=== PATIENT | male | born 1970 | race Caucasian/White ===

== ENCOUNTER 2018-08-05 16:17 | Emergency (ER) | payer SELFPAY ==
[2018-08-05] MEDS ORDERED: ONDANSETRON 4 MG/2 ML VIAL ONE ×2 (16:51→18:37)
[2018-08-05] MEDS ORDERED: KETOROLAC 30 MG/ML INJ ONE (16:51)
--- NOTE | 2018-08-05 17:28 | RAD REPORT ---
EXAM DESCRIPTION: CT - Stone Protocol - 08/05/2018 5:08 pm CLINICAL HISTORY: Flank pain. left flank pain COMPARISON: No comparisons TECHNIQUE: Axial images were obtained without oral or IV contrast. Lack of contrast limits solid org an and vascular assessment. The [id number] spans the entirety of the system partially obscuring uppermost abdomen and lung bases. Coronal reformatted images were obtained and reviewed. All CT scans are performed using dose optimization technique as appropriate and may include automated exposure control or mA/KV adjustment according to patient size. FINDINGS: The lower lung avalos are clear. Imaged portions of the liver and spleen show no suspicious findings on non-contrast imaging. The panc reas and adrenal glands are normal. No pathologic lymphadenopathy in the abdomen or pelvis. 5 mm stone is present at the left UVJ resulting in mild left hydronephrosis. No bowel obstruction, free air, free fluid or abscess. Normal appendix noted. No significant bony abnormality. Small fat containing umbilical hernia. Small bilateral inguinal deborah ias. IMPRESSION: 5 mm stone at the left UVJ resulting in mild left hydronephrosis.
[2018-08-05] MEDS ORDERED: MORPHINE 4 MG/ML SYR ONE ×2 (17:32→18:37)
[2018-08-05 17:39] LABS: Absolute Lymphocytes (CBC) 2.2 K/uL (0.7-4.9); Absolute Monocytes 0.8 K/uL (0.1-1.3); Absolute Neutrophil 4.9 K/uL (1.8-8.0); Basophils % 0.9 % (0-1.3); Eosinophils % 3.5 % (0-4.4); Hematocrit 43.7 % (39.6-49.0); Lymphocytes % 26.5 % (15.3-44.8); MPV 8.9 fL (7.6-11.3); Monocytes % 9.3 % (3.3-12.3); RBC Red Blood Cell Count 4.54 M/uL (4.33-5.43)
[2018-08-05 17:49] LABS: Urine Bacteria <20 /HPF (NONE SEEN)
[2018-08-05 17:50] LABS: Urine Culture Reflex Order NOT NEEDED; Urine Mucus LIGHT /HPF (NONE SEEN)
[2018-08-05] MEDS ORDERED: MAGNESIUM SULFATE 1 gm IVPB 1 GM/100 ML BAG IV ONE (18:02)
[2018-08-05] MEDS ORDERED: TAMSULOSIN 0.4 MG SR CAP ONE (18:02)
[2018-08-05 18:09] LABS: ALT/SGPT 42 U/L (12-78); AST/SGOT 25 U/L (15-37); Albumin 4.2 g/dL (3.4-5.0); Alkaline Phosphatase 57 U/L (45-117); BUN Blood Urea Nitrogen 19 mg/dL (7-18); Bicarbonate 23 mmol/L (21-32); Bilirubin Direct < 0.1 mg/dL (0-0.2); Bilirubin Total 0.3 mg/dL (0.2-1.0); Glucose Level 89 mg/dL (74-106); Lipase 105 U/L (73-393); Potassium 4.5 mmol/L (3.5-5.1); Protein, Total 7.5 g/dL (6.4-8.2); Sodium Level 139 mmol/L (136-145)
[2018-08-05 18:16] LABS: Urine Blood 3+ (NEG); Urine Glucose NEGATIVE (NEG); Urine Protein TRACE (NEG); Urine Specific Gravity >1.030 (1.005-1.030); Urine pH 5.5 (5.0-7.0)
--- NOTE | 2018-08-05 18:53 | ER ---
Nurse's Notes [facility] Name: Vlad Dixon Age: 48 yrs Sex: Male : 1970 Arrival Date: 08/05/2018 Time: 16:18 Bed 15 Private MD: Ho Jimenez T Diagnosis: Calculus of ureter-Left Presentation: 08/05 16:19 Presenting complaint: Patient states: 3 days ago, i started having L upper abd pain, L hj lower abd and flank area and its getting worse, it got worse after a bowel movement; denies diarrhea, denies N/V; denies fever and chills; took Tylenol today;. Transition of care: patient was not received from another setting of care. Onset of symptoms was August 05, 2018. Risk Assessment: Do you want to hurt yourself or someone else? Patient reports no desire to harm self or others. Initial Sepsis Screen: Does the patient meet any 2 criteria? No. Patient's initial sepsis screen is negative. Does the patient have a suspected source of infection? No. Patient's initial sepsis screen is negative. Care prior to arrival: None. 16:19 Method Of Arrival: Ambulatory 16:19 Acuity: NARGIS 3 hj Triage Assessment: 16:24 General: Appears in no apparent distress. uncomfortable, Behavior is cooperative, hj appropriate for age, anxious, crying. Pain: Complains of pain in abdomen Pain currently is 10 out of 10 on a pain scale. Quality of pain is described as stabbing. GI: Reports lower abdominal pain, upper abdominal pain. Historical: - Allergies: 16:24 No Known Allergies; hj - Home Meds: 16:24 Wellbutrin SR 300 mg Oral TbER 1 tab once daily [Active]; Protonix 40 mg Oral TbEC 1 hj tab once daily [Active]; Xarelto oral 1 tab once daily [Active]; atorvastatin 20 mg oral tab 1 tab once daily [Active]; - PMHx: 16:24 Depression; GERD; PE; DVT; Hyperlipidemia; hj - PSHx: 16:24 elbow; hj - Immunization history:: Adult Immunizations up to date. - Social history:: Smoking status: Patient/guardian denies using tobacco, Patient/guardian denies using alcohol. - Ebola Screening: : Patient negative for fever greater than or equal to 101.5 degrees Fahrenheit, and additional compatible Ebola Virus Disease symptoms Patient denies exposure to infectious person Patient denies travel to an Ebola-affected area in the 21 days before illness onset. Screenin:24 Abuse screen: Denies threats or abuse. Denies injuries from another. Nutritional hj screening: No deficits noted. Tuberculosis screening: No symptoms or risk factors identified. Fall Risk None identified. Assessment: 16:25 GI: Bowel sounds present X 4 quads. hj 16:25 General: Appears distressed, uncomfortable, well groomed, well developed, emaciated, tl3 Behavior is agitated, anxious. Pain: Complains of pain in abdomen Pain currently is 10 out of 10 on a pain scale. Neuro: Level of Consciousness is awake, alert, obeys commands, Oriented to person, place, time, situation, Appropriate for age. Cardiovascular: Patient's skin is warm and dry. Respiratory: Airway is patent Respiratory effort is even, labored, Respiratory pattern is tachypnea. : Urine is clear. EENT: No signs and/or symptoms were reported regarding the EENT system. Derm: No signs and/or symptoms reported regarding the dermatologic system. Musculoskeletal: No signs and/or symptoms reported regarding the musculoskeletal system. 17:40 Reassessment: Patient and/or family updated on plan of care and expected duration. Pain tl3 level reassessed. Patient is alert, oriented x 3, equal unlabored respirations, skin warm/dry/pink. 18:43 Reassessment: Patient appears in no apparent distress at this time. No changes from tl3 previously documented assessment. Patient and/or family updated on plan of care and expected duration. Pain level reassessed. Patient is alert, oriented x 3, equal unlabored respirations, skin warm/dry/pink. Jb at bedside discussing POC. 19:05 Reassessment: Patient appears in no apparent distress at this time. Patient and/or cc3 family updated on plan of care and expected duration. Pain level reassessed. Patient is alert, oriented x 3, equal unlabored respirations, skin warm/dry/pink. Received this male patient from morning shift VIKTORIYA Fletcher as a case of abdominal pain. With IV cannula gauge 20 at the right ACV saline locked. 19:30 Reassessment: HALINA Soares discharged the patient home with prescription given. IV cannula cc3 removed and patient left ER vitally stable and ambulatory with his . Vital Signs: 16:25 BP 162 / 100; Pulse 86; Resp 20; Temp 97.5(TE); Pulse Ox 98% on R/A; Weight 136.08 kg; tl3 Height 6 ft. 3 in. (190.50 cm); Pain 10/10; 17:15 BP 130 / 102; Pulse 80; Resp 18; Pulse Ox 100% on R/A; tl3 18:15 BP 138 / 96; Pulse 78; Resp 18; Pulse Ox 98% ; tl3 19:22 BP 143 / 97; Pulse 76; Resp 20 S; Pulse Ox 99% on R/A; cc3 16:25 Body Mass Index 37.50 (136.08 kg, 190.50 cm) tl3 ED Course: 16:18 Patient arrived in ED. sb2 16:18 Ho Jimenez MD is Private Physician. sb2 16:21 Triage completed. hj 16:25 Arm band placed on right wrist. hj 16:25 Patient has correct armband on for positive identification. Placed in gown. Bed in low hj position. Call light in reach. Side rails up X 1. Adult w/ patient. 16:31 Jb Soares PA is PHCP. cp 16:31 Jb Navarro MD is Attending Physician. cp 16:38 Initial lab(s) drawn, by me. Inserted saline lock: 20 gauge in right antecubital area, hj using aseptic technique. Blood collected. 16:40 Justine Cadena, RN is Primary Nurse. tl3 17:08 CT Stone Protocol In Process Unspecified. EDMS 17:41 Urine Dipstick--Ancillary (enter results) Sent. tl3 18:53 Pollo Otero MD is Referral Physician. cp 19:30 No provider procedures requiring assistance completed. IV discontinued, intact, cc3 bleeding controlled, No redness/swelling at site. Pressure dressing applied. Administered Medications: 16:46 Drug: Zofran 4 mg Route: IVP; Site: right antecubital; tl3 18:38 Follow up: Response: No adverse reaction tl3 16:46 Drug: TORadol 30 mg Route: IVP; Infused Over: 1 mins; Site: right antecubital; tl3 18:38 Follow up: Response: Pain is decreased tl3 17:41 Drug: morphine 4 mg Route: IVP; Infused Over: 2 mins; Site: right antecubital; tl3 18:38 Follow up: Response: No adverse reaction tl3 18:00 Drug: Flomax 0.4 mg Route: PO; tl3 18:33 Follow up: Response: No adverse reaction tl3 18:00 Drug: Magnesium Sulfate 1 grams Route: IVPB; Infused Over: 1 hrs; Site: right tl3 antecubital; Delivery: Primary tubing; 18:36 Drug: morphine 4 mg Route: IVP; Infused Over: 2 mins; Site: right antecubital; tl3 18:42 Follow up: Response: Pain is decreased tl3 18:37 Drug: Zofran 4 mg Route: IVP; Infused Over: 2 mins; Site: right antecubital; tl3 18:42 Follow up: Response: No adverse reaction tl3 19:20 Drug: Tylenol #3 (300 mg-30 mg) 2 tabs Route: PO; cc3 19:30 Follow up: Response: No adverse reaction cc3 Outcome: 18:53 Discharge ordered by MD. cp 19:30 Discharged to home ambulatory, with family. cc3 19:30 Condition: stable 19:30 Discharge instructions given to patient, family, Instructed on discharge instructions, follow up and referral plans. medication usage, Demonstrated understanding of instructions, follow-up care, medications, Prescriptions given X 3. 19:41 Patient left the ED. cc3 Signatures: Dispatcher [employer] EDMS Max Scott RN RN hj Jb Soares PA PA cp Billeau, Sheri sb2 Justine Cadena RN RN tl3 Mildred Bradley cc3 Corrections: (The following items were deleted from the chart) 16:22 16:19 Presenting complaint: Patient states: 3 days ago, i started having L upper abd hj pain, L lower abd and flank area and its getting worse, reports diarrhea, denies N/V; denies fever and chills; took Tylenol today; hj 16:30 16:25 Pulse 86bpm; Resp 18bpm; Pulse Ox 98% RA; Temp 97.5F Temporal; 136.08 kg; Height hj 6 ft. 3 in.; BMI: 37.5; Pain 10/10; hj 18:31 16:25 BP 162 / 100; Pulse 86bpm; Resp 18bpm; Pulse Ox 98% RA; Temp 97.5F Temporal; tl3 136.08 kg; Height 6 ft. 3 in.; BMI: 37.5; Pain 10/10; hj 18:32 16:25 BP 130 / 102; Pulse 80bpm; Resp 18bpm; Pulse Ox 100% RA; tl3 tl3
--- NOTE | 2018-08-05 18:53 | EDPHYS ---
Physician Documentation [facility] Name: Vlad Dixon Age: 48 yrs Sex: Male : 1970 Arrival Date: 08/05/2018 Time: 16:18 Bed 15 Private MD: Ho Jiemnez T ED Physician Jb Navarro HPI: 08/05 16:45 This 48 yrs old Male presents to ER via Ambulatory with complaints of cp Abdominal Pain, Diarrhea. 16:45 The patient presents with abdominal pain left flank. The symptoms radiate to left back, cp left groin. Associated signs and symptoms: Pertinent positives: dysuria, nausea, Pertinent negatives: blood in stools, chest pain, constipation, diarrhea, fever, headache, palpitations, vomiting. The symptoms are described as constant. 16:45 Onset: The symptoms/episode began/occurred 3 day(s) ago, and became worse today, after cp bowel movement. Historical: - Allergies: 16:24 No Known Allergies; hj - Home Meds: 16:24 Wellbutrin SR 300 mg Oral TbER 1 tab once daily [Active]; Protonix 40 mg Oral TbEC 1 hj tab once daily [Active]; Xarelto oral 1 tab once daily [Active]; atorvastatin 20 mg oral tab 1 tab once daily [Active]; - PMHx: 16:24 Depression; GERD; PE; DVT; Hyperlipidemia; hj - PSHx: 16:24 elbow; hj - Immunization history:: Adult Immunizations up to date. - Social history:: Smoking status: Patient/guardian denies using tobacco, Patient/guardian denies using alcohol. - Ebola Screening: : Patient negative for fever greater than or equal to 101.5 degrees Fahrenheit, and additional compatible Ebola Virus Disease symptoms Patient denies exposure to infectious person Patient denies travel to an Ebola-affected area in the 21 days before illness onset. ROS: 16:50 Constitutional: Negative for body aches, chills, fever, poor PO intake. cp 16:50 Eyes: Negative for injury, pain, redness, and discharge. cp 16:50 ENT: Negative for drainage from ear(s), ear pain, sore throat, difficulty swallowing, difficulty handling secretions. 16:50 Cardiovascular: Negative for chest pain, edema, palpitations. 16:50 Respiratory: Negative for cough, shortness of breath, wheezing. 16:50 Abdomen/GI: Positive for abdominal pain, nausea, Negative for vomiting, diarrhea, constipation, anorexia, black/tarry stool, rectal bleeding. 16:50 Back: Positive for flank pain, on the left, Negative for injury or acute deformity, decreased range of motion. 16:50 : Positive for burning with urination, left groin pain. 16:50 Skin: Negative for cellulitis, rash. 16:50 Neuro: Negative for altered mental status, headache, weakness. 16:50 All other systems are negative. Exam: 16:55 Constitutional: The patient appears in no acute distress, alert, awake, cp non-diaphoretic, non-toxic, well developed, well nourished, uncomfortable. 16:55 Head/Face: Normocephalic, atraumatic. cp 16:55 Eyes: Periorbital structures: appear normal, Conjunctiva: normal, no exudate, no injection, Sclera: no appreciated abnormality, Lids and lashes: appear normal, bilaterally. 16:55 ENT: External ear(s): are unremarkable, Nose: is normal, Mouth: Lips: moist, Oral mucosa: pink and intact, moist, Posterior pharynx: is normal, airway is patent, no erythema, no exudate, Voice: is normal. 16:55 Neck: ROM/movement: is normal, is supple, without pain, no range of motions limitations, no nuchal rigidity. 16:55 Chest/axilla: Inspection: normal, Palpation: is normal, no crepitus, no tenderness. 16:55 Cardiovascular: Rate: normal, Rhythm: regular, Edema: is not appreciated, JVD: is not appreciated. 16:55 Respiratory: the patient does not display signs of respiratory distress, Respirations: normal, no use of accessory muscles, no retractions, no splinting, no tachypnea, labored breathing, is not present, Breath sounds: are clear throughout, no decreased breath sounds, no stridor, no wheezing. 16:55 Abdomen/GI: Inspection: obese Bowel sounds: active, all quadrants, Palpation: soft, in all quadrants, moderate abdominal tenderness, in the anterior aspect of left lateral abdomen, left upper quadrant and left lower quadrant, rebound tenderness, is not appreciated, involuntary guarding, is not appreciated. 16:55 Skin: cellulitis, is not appreciated, no rash present. 16:55 Neuro: Orientation: to person, place \T\ time. Mentation: is normal, Cerebellar function: is grossly normal, Motor: moves all fours, strength is normal, Sensation: is normal. Vital Signs: 16:25 BP 162 / 100; Pulse 86; Resp 20; Temp 97.5(TE); Pulse Ox 98% on R/A; Weight 136.08 kg; tl3 Height 6 ft. 3 in. (190.50 cm); Pain 10/10; 17:15 BP 130 / 102; Pulse 80; Resp 18; Pulse Ox 100% on R/A; tl3 18:15 BP 138 / 96; Pulse 78; Resp 18; Pulse Ox 98% ; tl3 19:22 BP 143 / 97; Pulse 76; Resp 20 S; Pulse Ox 99% on R/A; cc3 16:25 Body Mass Index 37.50 (136.08 kg, 190.50 cm) tl3 MDM: 16:31 Patient medically screened. cp 17:00 Differential diagnosis: appendicitis, bowel obstruction, cholecystitis, Cholelithiasis, cp diverticulitis, pancreatitis, Pyelonephritis, Testicular Torsion, Ureterolithiasis, urinary tract infection. 18:50 Data reviewed: vital signs, nurses notes, lab test result(s), radiologic studies, CT cp scan. 18:50 Counseling: I had a detailed discussion with the patient and/or guardian regarding: the cp historical points, exam findings, and any diagnostic results supporting the discharge/admit diagnosis, lab results, radiology results, the need for outpatient follow up, a urologist, to return to the emergency department if symptoms worsen or persist or if there are any questions or concerns that arise at home. Response to treatment: the patient's symptoms have markedly improved after treatment, VSS. Pain markedly improved, and as a result, I will discharge patient. 08/05 16:38 Order name: Basic Metabolic Panel; Complete Time: 18:28 cp 08/05 18:28 Interpretation: Normal except: BUN 19; GFR 62. cp 08/05 16:38 Order name: CBC with Diff; Complete Time: 17:55 cp 08/05 17:56 Interpretation: Reviewed. cp 08/05 16:38 Order name: Creatinine for Radiology; Complete Time: 18:28 cp 08/05 16:38 Order name: Hepatic Function; Complete Time: 18:28 cp 08/05 16:38 Order name: Lipase; Complete Time: 18:28 cp 08/05 16:38 Order name: Urine Microscopic Only; Complete Time: 17:55 cp 08/05 16:38 Order name: CT Stone Protocol; Complete Time: 17:41 cp 08/05 17:36 Order name: Urine Dipstick--Ancillary (enter results) ag 08/05 17:37 Order name: Urine Dipstick-Ancillary; Complete Time: 18:28 EDMS 08/05 16:38 Order name: IV Saline Lock; Complete Time: 16:41 cp 08/05 16:38 Order name: Labs collected and sent; Complete Time: 16:41 cp 08/05 16:38 Order name: Urine Dipstick-Ancillary (obtain specimen); Complete Time: 17:41 cp 08/05 18:28 Order name: PO challenge; Complete Time: 18:33 cp Administered Medications: 16:46 Drug: Zofran 4 mg Route: IVP; Site: right antecubital; tl3 18:38 Follow up: Response: No adverse reaction tl3 16:46 Drug: TORadol 30 mg Route: IVP; Infused Over: 1 mins; Site: right antecubital; tl3 18:38 Follow up: Response: Pain is decreased tl3 17:41 Drug: morphine 4 mg Route: IVP; Infused Over: 2 mins; Site: right antecubital; tl3 18:38 Follow up: Response: No adverse reaction tl3 18:00 Drug: Flomax 0.4 mg Route: PO; tl3 18:33 Follow up: Response: No adverse reaction tl3 18:00 Drug: Magnesium Sulfate 1 grams Route: IVPB; Infused Over: 1 hrs; Site: right tl3 antecubital; Delivery: Primary tubing; 18:36 Drug: morphine 4 mg Route: IVP; Infused Over: 2 mins; Site: right antecubital; tl3 18:42 Follow up: Response: Pain is decreased tl3 18:37 Drug: Zofran 4 mg Route: IVP; Infused Over: 2 mins; Site: right antecubital; tl3 18:42 Follow up: Response: No adverse reaction tl3 19:20 Drug: Tylenol #3 (300 mg-30 mg) 2 tabs Route: PO; cc3 19:30 Follow up: Response: No adverse reaction cc3 Disposition: 08/05/18 18:53 Discharged to Home. Impression: Calculus of ureter - Left. - Condition is Stable. - Discharge Instructions: Kidney Stones. - Prescriptions for Tylenol- Codeine #3 300-30 mg Oral Tablet - take 2 tablets by ORAL route every 6 hours As needed; 20 tablet. Zofran 4 mg Oral Tablet - take 1 tablet by ORAL route every 12 hours As needed; 20 tablet. Flomax 0.4 mg Oral Capsule, Sust. Release 24 hr - take 1 capsule by ORAL route once daily 1/2 hour following the same meal each day; 5 capsule. - Medication Reconciliation Form, Thank You Letter, Antibiotic Education, Prescription Opioid Use form. - Follow up: Pollo Otero MD; When: 1 - 2 days; Reason: pain continues. - Problem is new. - Symptoms have improved. Addendum: 08/08/2018 07:38 Co-signature as Attending Physician, Jb Navarro MD I agree with the assessment and c waldrop plan of care. Signatures: Dispatcher [employer] EDOR Jb Navarro MD MD cha Joaquin, Henry, RN RN Jb Soares PA PA cp Justine Cadena, VIKTORIYA RN tl3 Mildred Bradley cc3 Corrections: (The following items were deleted from the chart) 08/05 19:41 18:53 08/05/2018 18:53 Discharged to Home. Impression: Calculus of ureter - Left. cc3 Condition is Stable. Forms are Medication Reconciliation Form, Thank You Letter, Antibiotic Education, Prescription Opioid Use. Follow up: Pollo Otero; When: 1 - 2 days; Reason: pain continues. Problem is new. Symptoms have improved. cp
[2018-08-05] MEDS ORDERED: CODEINE 30MG/APAP 300MG TAB ONE (19:28)
== END 2018-08-05 19:41 | disposition home or self-care (01) ==
LOC: ER 16:17
DX: N13.2 Hydronephrosis with renal and ureteral calculous obstruction (principal); F32.9 Major depressive disorder, single episode, unspecified; K21.9 Gastro-esophageal reflux disease without esophagitis; E78.5 Hyperlipidemia, unspecified; Z79.01 Long term (current) use of anticoagulants; Z79.899 Other long term (current) drug therapy; Z86.718 Personal history of other venous thrombosis and embolism; Z86.711 Personal history of pulmonary embolism
CPT/HCPCS: 36415; 74176; 76377; 80048; 80076; 81003; 81015; 83690; 85025; 96374; 96375; 99284; J2405; J3475